=== PATIENT | female | born 1990 | race Caucasian/White ===

== ENCOUNTER 2021-03-26 05:33 | Inpatient (IN) | payer OTHER ==
[2021-03-26] MEDS: Lactated Ringer's 1,000 ML IV SCH ×4 (06:17→22:48)
[2021-03-26] MEDS ORDERED: Promethazine HCl 25 MG/ML VIAL IM PRN ×2 (06:19→09:01)
[2021-03-26] MEDS ORDERED: Ondansetron PF 4 MG/2 ML Vial IVP PRN ×3 (06:19→09:08)
[2021-03-26] MEDS ORDERED: Bicitra 30 ML UDCUP PO PRN (06:19)
[2021-03-26] MEDS ORDERED: hydrALAZINE 20 MG/ML VIAL SLOW IVP PRN ×2 (06:19→09:08)
[2021-03-26] MEDS ORDERED: CEFAZOLIN 2 GM in Premix Bag 1 BAG IVPB SCH (06:19)
[2021-03-26] MEDS ORDERED: Famotidine/PF 20 mg/2ml Vial SLOW IVP PRN (06:19)
[2021-03-26 06:31] VITALS: BMI 33.2
[2021-03-26 06:47] LABS: Hemoglobin 11.2 g/dL (12.0-15.5); Mean Corpuscular HGB CONC 33.3 g/dL (32.0-36.0); Mean Corpuscular Hemoglobin 29.7 pg (27.0-33.0); Mean Corpuscular Volume 89.1 fl (81.6-98.3); Mean Platelet Volume 9.5 fl (7.4-10.4); Platelet Count 127 10x3/uL (150-450); Red Blood Cell (RBC) Count 3.77 10x6/uL (3.90-5.03); White Blood Cell (WBC) Count 3.1 10x3/uL (3.5-10.5)
[2021-03-26] MEDS ORDERED: Morphine PF 10 MG/10 ML VIAL ONE (07:17)
[2021-03-26] MEDS ORDERED: PHENYLEPHRINE-NS 100 MCG/ML 10 ML SYRINGE ONE (07:25)
[2021-03-26] MEDS ORDERED: Oxytocin 10 UNITS/ML VIAL ONE (07:25)
[2021-03-26] MEDS ORDERED: Erythromycin Base 0.5% Oint 1 GM TUBE ONE (07:27)
[2021-03-26] MEDS ORDERED: Phytonadione Neonatal 1 MG/0.5 ML AMP ONE (07:27)
[2021-03-26 07:34] LABS: Syphilis Antibody Nonreactive (Nonreactive); Syphilis Antibody Index 0.09 S/CO (<1.00 Non-Reactive)
[2021-03-26 07:35] LABS: Hep B Surf Ag Non-Reactive S/CO (NonReactive)
[2021-03-26 07:53] LABS: HBSAg Index 0.16 S/CO (0-0.99)
[2021-03-26] MEDS ORDERED: Fentanyl 100 MCG/2 ML VIAL ONE (08:09)
[2021-03-26] MEDS ORDERED: L&D-Morphine 4 MG/ML VIAL SLOW IVP PRN (09:01)
[2021-03-26] MEDS ORDERED: diphenhydrAMINE 50 MG/ML VIAL IVP PRN (09:01)
[2021-03-26] MEDS ORDERED: Naloxone HCl 0.4 mg/ml Vial IVP PRN ×2 (09:01)
[2021-03-26] MEDS ORDERED: Ketorolac Tromethamine 30 MG/ML VIAL IVP PRN (09:01)
[2021-03-26] MEDS ORDERED: HYDROmorphone 2 MG/ML VIAL SLOW IVP PRN (09:01)
[2021-03-26] MEDS ORDERED: Meperidine HCl/PF 25 MG/ML VIAL SLOW IVP PRN (09:01)
[2021-03-26] MEDS ORDERED: Promethazine HCl 25 MG SUPP PR PRN (09:01)
[2021-03-26] MEDS ORDERED: Naloxone HCl 0.4 mg/ml Vial IV PRN (09:01)
[2021-03-26] MEDS ORDERED: Ondansetron HCl/PF 4 MG/2 ML Vial IVP PRN (09:01)
[2021-03-26] MEDS ORDERED: Eucerin (Mineral Oil/Petrolatum,White) 30 gm Jar TOP PRN (09:01)
[2021-03-26] MEDS ORDERED: Meperidine HCl/PF 25 MG/ML VIAL IM PRN (09:08)
[2021-03-26] MEDS ORDERED: Bisacodyl 10 MG SUPP PR PRN (09:08)
[2021-03-26] MEDS ORDERED: Adacel (T-DAP) 0.5 ML SYRINGE IM ONE (09:08)
[2021-03-26] MEDS ORDERED: Lanolin Ointment 7 GM TUBE TOP PRN (09:08)
[2021-03-26] MEDS ORDERED: HYDROcodone/Acetaminophen 5/325 mg Tablet PO PRN (09:08)
[2021-03-26] MEDS ORDERED: Misoprostol 200 MCG TAB PR PRN (09:08)
[2021-03-26] MEDS ORDERED: diphenhydrAMINE 25 MG CAP PO PRN (09:08)
[2021-03-26] MEDS ORDERED: Acetaminophen 325 MG TAB PO PRN (09:08)
[2021-03-26] MEDS ORDERED: Zolpidem Tartrate 5 MG TAB PO PRN (09:08)
[2021-03-26] MEDS ORDERED: Ketorolac Tromethamine 30 MG/ML VIAL IVP SCH (09:15)
[2021-03-26] MEDS ORDERED: Communication Order-Pharmacy FS SCH (09:15)
[2021-03-26] MEDS: Docusate Calcium (SURFAK) 240 MG CAP PO SCH (22:48)
[2021-03-26] MEDS: Ferrous Sulfate 325 MG TAB PO SCH (22:48)
[2021-03-27 03:03] LABS: SARS-CoV-2 PCR by NAA DETECTED (NotDetected)
[2021-03-27] MEDS: Lactated Ringer's 1,000 ML IV SCH ×3 (04:42→18:20)
[2021-03-27] MEDS: HYDROcodone/Acetaminophen 5/325 mg Tablet PO PRN ×4 (05:05→18:22)
[2021-03-27] MEDS: Simethicone Chewable 80 MG TAB PO PRN ×2 (05:34→09:02)
[2021-03-27] MEDS: Ibuprofen 800 MG TAB PO SCH ×3 (06:52→21:49)
[2021-03-27 07:40] LABS: Hemoglobin 9.9 g/dL (12.0-15.5); Mean Corpuscular HGB CONC 33.9 g/dL (32.0-36.0); Mean Corpuscular Hemoglobin 30.7 pg (27.0-33.0); Mean Corpuscular Volume 90.7 fl (81.6-98.3); Mean Platelet Volume 9.8 fl (7.4-10.4); Platelet Count 121 10x3/uL (150-450); Red Blood Cell (RBC) Count 3.22 10x6/uL (3.90-5.03); White Blood Cell (WBC) Count 6.9 10x3/uL (3.5-10.5)
[2021-03-27] MEDS: Docusate Calcium (SURFAK) 240 MG CAP PO SCH ×2 (09:01→21:49)
[2021-03-27] MEDS: Ferrous Sulfate 325 MG TAB PO SCH ×2 (09:01→21:52)
[2021-03-27] MEDS: Prenatal Vitamin 1 TAB PO SCH (09:02)
[2021-03-27] MEDS ORDERED: Ibuprofen 800 MG TAB PO SCH (14:00)
[2021-03-28] MEDS: Ibuprofen 800 MG TAB PO SCH (05:13)
[2021-03-28] MEDS: Lactated Ringer's 1,000 ML IV SCH ×2 (05:36→14:37)
[2021-03-28 08:02] VITALS: BP 111/72; TEMP 97.8
[2021-03-28] MEDS: Docusate Calcium (SURFAK) 240 MG CAP PO SCH (09:44)
[2021-03-28] MEDS: Prenatal Vitamin 1 TAB PO SCH (09:44)
[2021-03-28] MEDS: Ferrous Sulfate 325 MG TAB PO SCH (09:44)
[2021-03-28] MEDS: HYDROcodone/Acetaminophen 5/325 mg Tablet PO PRN (09:46)
== END 2021-03-28 12:10 | disposition home or self-care (01) | DRG 786 ==
LOC: CSHLD 05:33 → CSHPP 13:00
PROVIDERS: ADMIT Obstetrics & Gynecology; ATTEND Obstetrics & Gynecology
PROC: 10D00Z1 Extraction of Products of Conception, Low, Open Approach (ICD-10-PCS; principal; 2021-03-26)
PROC: 8E0ZXY6 Isolation (ICD-10-PCS; 2021-03-26)
DX: O34.211 Maternal care for low transverse scar from previous cesarean delivery (principal); U07.1 COVID-19; O98.52 Other viral diseases complicating childbirth; D62 Acute posthemorrhagic anemia; O99.824 Streptococcus B carrier state complicating childbirth; O99.02 Anemia complicating childbirth; O99.892 Other specified diseases and conditions complicating childbirth; R00.0 Tachycardia, unspecified; Z3A.38 38 weeks gestation of pregnancy; Z37.0 Single live birth
CPT/HCPCS: 36415; 51702; 85027; 86780; 86850; 86900; 86901; 87340; 87635; J0690; J1885; J2274; J2405; J2550; J3010; U0003; U0005